=== PATIENT | female | born 1990 ===

== ENCOUNTER 2021-06-07 21:41 | Emergency (ER) | payer SELFPAY ==
[~2021-06-07] VITALS: Ht 162.6 cm; Wt 49.9 kg
--- NOTE | 2021-06-07 23:06 | NUR ---
Patient discharged to home in stable condition. Written and verbal after care instructions given. Patient verbalizes understanding of instructions. Stressed follow up or return to ER for worsening s/s.
== END 2021-06-07 23:10 | disposition home or self-care (01) ==
LOC: EDSEX 21:44 → ER 21:44
DX: J02.8 Acute pharyngitis due to other specified organisms (principal); R59.1 Generalized enlarged lymph nodes; Z20.822 Contact with and (suspected) exposure to COVID-19
CPT/HCPCS: 86403; 87070; 87400; A4663